=== PATIENT | female | born 1995 | race African-American/Black ===

== ENCOUNTER 2021-08-24 00:50 | Observation (INO) | payer OTHER, SELFPAY ==
--- NOTE | 2021-08-24 00:50 | OBADM ---
This patient, Valery Quiroz Hyster, admitted to the OB room [facility] for observation. Patient/family oriented to hospital policies and general routines including ID bracelet, bed and alarms, visiting hours, pain management, procedures, bathroom and other care routines, personal items, smoking policy, room service/diet, and visiting hours. Patient/Family are encouraged to report perceived risks to care and to ask questions if they do not understand what they are told or what they should do.
[2021-08-24 01:00] VITALS: BMI 35.4
[2021-08-24 01:18] VITALS: BP 122/65; PULSE 100
[2021-08-24 02:06] LABS: Hematocrit 31.4 % (37.0-47.0); Hemoglobin 10.5 g/dL (12.0-15.0); Mean Corpuscular HGB Conc 33.4 g/dl (32-36); Mean Corpuscular Hemoglobin 30.6 pg (26-34); Mean Corpuscular Volume 91.5 fl (80-100); Mean Platelet Volume 9.8 fl (7.4-10.4); Platelet Count Result 226 k/mm3 (150-375); Red Blood Count 3.43 M/mm3 (4.2-5.4); Red Cell Distribution Width 13.5 % (11.5-14.5); White Blood Count 8.1 K/mm3 (4.5-10.0)
[2021-08-24 08:03] VITALS: BP 119/57; PULSE 99
[2021-08-24 08:14] LABS: Basophils Percent Auto 0.5 % (0.2-1.2); Eosinophils Absolute Auto 0.2 K/mm3 (0-0.3); Eosinophils Percent Auto 2.1 % (0-4.4); Hematocrit 30.8 % (37.0-47.0); Immature Granulocyte Absolute 0.06 K/mm3 (0.00-0.031); Immature Granulocyte Percent A 0.8 % (0-0.5); Lymphocytes Absolute Auto 2.31 K/mm3 (0.9-3.2); Lymphocytes Percent Auto 29.6 % (18.3-44.2); Mean Corpuscular HGB Conc 32.5 g/dl (32-36); Mean Corpuscular Hemoglobin 29.6 pg (26-34); Mean Corpuscular Volume 91.1 fl (80-100); Mean Platelet Volume 9.9 fl (7.4-10.4); Monocytes Absolute Auto 0.6 K/mm3 (0.1-0.6); Monocytes Percent Auto 7.9 % (2.6-8.5); Neutrophils Absolute Auto 4.6 K/mm3 (1.3-6.7); Neutrophils Percent Auto 59.1 % (45.5-73.1); Platelet Count Result 222 k/mm3 (150-375); Red Blood Count 3.38 M/mm3 (4.2-5.4); Red Cell Distribution Width 13.7 % (11.5-14.5); White Blood Count 7.8 K/mm3 (4.5-10.0)
--- NOTE | 2021-08-24 08:38 | PM.IMHP ---
H&P: HPI History of Present Illness Date/Time: 08/24/21 08:38 Patient is a 25-year-old LMP 02/18/2021 currently 27 weeks 2 days gestation with BILLY 11/21/2021 (per patient). Patient presented to labor and delivery status post fall earlier this morning. 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 She states that she tripped and when she was unable to brace herself from the fall, she fell directly on her abdomen on the concrete steps. Afterwards, she denied significant abdominal pain, however, reported cramping while en route to the hospital. States that cramping has since completely resolved. She also reported minimal leg discomfort, which has also resolved. Patient denies any head or chest trauma. Patient denies any vaginal bleeding, leakage of fluid, or contractions. She reports good movement. Patient receives outside care with Dr. Najera at [facility] in [facility]. Patient states her last appointment was approximately 1 month ago and she has next scheduled appointment on 08/30/21. Patient states that current has been uncomplicated thus far. She does, however, have a history of a previous emergency section x1 for placental abruption at [facility] in 2019. Patient uncertain cause of placental abruption, but states it may have had something to do with a fibroid uterus. Chief Complaint: Intrauterine at 27w2d gestation s/p fall previous C/S x 1 history of placental abruption Review of Systems Review of Systems: All systems reviewed & are unremarkable except as noted in HPI and below Constitutional: Constitutional: Reports as per HPI and Reports no additional constitutional complaints Eyes: Eyes: Reports as per HPI and Reports no additional eye complaints ENT: Reports system reviewed and no additional complaints, except as documented and Reports as per HPI Cardiovascular: Cardiovascular: Reports as per HPI, Reports no additional cardiovascular complaints and Denies chest pain Respiratory: Respiratory: Reports as per HPI and Reports no additional respiratory complaints Gastrointestinal: Gastrointestinal: Reports as per HPI, Reports no additional gastrointestinal complaints and Denies abdominal pain Genitourinary: Genitourinary: Reports no additional female genitourinary complaints, Reports as per HPI and Denies abnormal vaginal bleeding Musculoskeletal: Musculoskeletal: Reports no additional musculoskeletal complaints and Reports as per HPI Integumentary/Breasts: Skin/Breast: Reports system reviewed and no additional complaints, except as docu and Reports as per HPI Neurologic: Reports system reviewed and no additional complaints, except as documented and Reports as per HPI Psychiatric: Psychiatric: Reports no additional psychiatric complaints and Reports as per HPI Endocrine: Endocrine: Reports no additional endocrine complaints and Reports as per HPI Hematologic/Lymphatic: Hematologic/Lymphatic: Reports no additional hematologic/lymphatic complaints and Reports as per HPI Allergic/Immunologic: Allergic/Immunologic: Reports no additional allergic/immunologic complaints and Reports as per HPI [facility] Surgical History Surgical History (Updated 08/24/21 @ 08:47 by Karma Lui MD) Previous section Social History Social History (Updated 08/24/21 @ 08:47 by Karma Lui MD) Smoking status: Never smoker Alcohol intake: never Substance use: never Meds Home Medications and Allergies Home Medications Medication Instructions Recorded Confirmed Type prenat.vits,inés,[id number] 1 tablet PO DAILY 08/24/21 08/24/21 History [ Vitamin] Vital Signs Vital Signs - 24 hr 08/24/21 01:18 08/24/21 08:03 Pulse Rate 100 99 Blood Pressure 122/65 119/57 L Exam Const: General: cooperative, healthy appearing, comfortable and no acute distress HENMT: Head: normal to insp
[2021-08-24 17:41] LABS: Basophils Percent Auto 0.4 % (0.2-1.2); Eosinophils Absolute Auto 0.2 K/mm3 (0-0.3); Eosinophils Percent Auto 2.2 % (0-4.4); Hematocrit 29.8 % (37.0-47.0); Hemoglobin 9.9 g/dL (12.0-15.0); Immature Granulocyte Absolute 0.07 K/mm3 (0.00-0.031); Immature Granulocyte Percent A 0.9 % (0-0.5); Lymphocytes Absolute Auto 2.27 K/mm3 (0.9-3.2); Lymphocytes Percent Auto 30.8 % (18.3-44.2); Mean Corpuscular HGB Conc 33.2 g/dl (32-36); Mean Corpuscular Hemoglobin 30.2 pg (26-34); Mean Corpuscular Volume 90.9 fl (80-100); Mean Platelet Volume 9.8 fl (7.4-10.4); Monocytes Absolute Auto 0.5 K/mm3 (0.1-0.6); Monocytes Percent Auto 7.3 % (2.6-8.5); Neutrophils Absolute Auto 4.3 K/mm3 (1.3-6.7); Neutrophils Percent Auto 58.4 % (45.5-73.1); Platelet Count Result 239 k/mm3 (150-375); Red Blood Count 3.28 M/mm3 (4.2-5.4); Red Cell Distribution Width 13.6 % (11.5-14.5); White Blood Count 7.4 K/mm3 (4.5-10.0)
--- NOTE | 2021-08-24 17:56 | P.PNOB_ITS ---
OB - PN: Subj Subjective Date/time seen: 08/24/21 17:56 Patient doing well. Denies any vaginal bleeding, leakage of fluid, or contractions. Reports good movement. OB - PN: Obj Data Labs CBC & Chem 7: 08/24/21 17:36 Labs: Laboratory Results - last 24 hr 08/24/21 08/24/21 08/24/21 01:57 01:57 08:02 WBC 8.1 7.8 RBC 3.43 L 3.38 L Hgb 10.5 L 10.0 L Hct 31.4 L 30.8 L MCV 91.5 91.1 MCH 30.6 29.6 MCHC 33.4 32.5 RDW 13.5 13.7 Plt Count 226 222 MPV 9.8 9.9 Immature Gran % (Auto) 0.8 H Neut % (Auto) 59.1 Lymph % (Auto) 29.6 [place] % (Auto) 7.9 Eos % (Auto) 2.1 Baso % (Auto) 0.5 Lymph # (Auto) 2.31 [place] # (Auto) 0.6 Eos # (Auto) 0.2 Baso # (Auto) 0.0 Abs Immat Gran (auto) 0.06 H Absolute Neuts (auto) 4.6 Absolute Nucleated RBC 0.0 Nucleated RBC % 0.0 Blood Type A Positive KB Hemoglobin Negative 08/24/21 17:36 WBC 7.4 RBC 3.28 L Hgb 9.9 L Hct 29.8 L MCV 90.9 MCH 30.2 MCHC 33.2 RDW 13.6 Plt Count 239 MPV 9.8 Immature Gran % (Auto) 0.9 H Neut % (Auto) 58.4 Lymph % (Auto) 30.8 [place] % (Auto) 7.3 Eos % (Auto) 2.2 Baso % (Auto) 0.4 Lymph # (Auto) 2.27 [place] # (Auto) 0.5 Eos # (Auto) 0.2 Baso # (Auto) 0.0 Abs Immat Gran (auto) 0.07 H Absolute Neuts (auto) 4.3 Absolute Nucleated RBC 0.0 Nucleated RBC % 0.0 Blood Type KB Hemoglobin OB - PN A/P Assessment and Plan (1) Fall (on) (from) other stairs and steps, initial encounter: Code(s): W10.8XXA - Fall (on) (from) other stairs and steps, initial encounter Status: Acute Assessment and Plan: patient doing well continue observation Hgb stable, due for one last draw this evening Time Spent With Patient Time: Total time spent is greater than 50% in coordination of care (as documented) at patient's floor/unit and/or counseling patient: Exam Back/Spine/Pelvis: Other: EFM 150/moderate [place]: no contractions
[2021-08-24 20:50] VITALS: BP 122/70; PULSE 91
[2021-08-24 21:00] VITALS: TEMP 36.3
[2021-08-24 23:57] LABS: Hematocrit 30.9 % (37.0-47.0); Hemoglobin 10.1 g/dL (12.0-15.0); Mean Corpuscular HGB Conc 32.7 g/dl (32-36); Mean Corpuscular Hemoglobin 29.6 pg (26-34); Mean Corpuscular Volume 90.6 fl (80-100); Mean Platelet Volume 9.8 fl (7.4-10.4); Platelet Count Result 230 k/mm3 (150-375); Red Blood Count 3.41 M/mm3 (4.2-5.4); Red Cell Distribution Width 13.5 % (11.5-14.5); White Blood Count 7.9 K/mm3 (4.5-10.0)
[2021-08-25 06:57] VITALS: BP 107/50; PULSE 96; TEMP 36.5
--- NOTE | 2021-08-25 08:48 | PC.NURSE ---
Dr. Lui informed of 2 small variable decels that I considered appropriate for her gestational age. Pt denies any abdominal pain, vaginal bleeding, or leakage of fluid. Pt has an appointment scheduled with her primary OB physician on Monday. OK to discharge to home.
--- NOTE | 2021-08-25 08:58 | PM.OBPNVD ---
OB - PN: Subj Subjective Date/time seen: 08/25/21 08:58 Per RN, patient doing well this AM. Denies any vaginal bleeding, leakage of fluid, or contractions. Reports good movement. OB - PN: Obj Data Labs CBC & Chem 7: 08/24/21 23:38 Labs: Laboratory Results - last 24 hr 08/24/21 08/24/21 17:36 23:38 WBC 7.4 7.9 RBC 3.28 L 3.41 L Hgb 9.9 L 10.1 L Hct 29.8 L 30.9 L MCV 90.9 90.6 MCH 30.2 29.6 MCHC 33.2 32.7 RDW 13.6 13.5 Plt Count 239 230 MPV 9.8 9.8 Immature Gran % (Auto) 0.9 H Neut % (Auto) 58.4 Lymph % (Auto) 30.8 [place] % (Auto) 7.3 Eos % (Auto) 2.2 Baso % (Auto) 0.4 Lymph # (Auto) 2.27 [place] # (Auto) 0.5 Eos # (Auto) 0.2 Baso # (Auto) 0.0 Abs Immat Gran (auto) 0.07 H Absolute Neuts (auto) 4.3 Absolute Nucleated RBC 0.0 Nucleated RBC % 0.0 OB - PN A/P Assessment and Plan (1) Fall (on) (from) other stairs and steps, initial encounter: Code(s): W10.8XXA - Fall (on) (from) other stairs and steps, initial encounter Status: Acute Assessment and Plan: discharge home in stable condition advised to contact primary OB office emergency precautions reviewed september f/u at next scheduled appt with primary OB on 08/30 Time Spent With Patient Time: Total time spent is greater than 50% in coordination of care (as documented) at patient's floor/unit and/or counseling patient:
--- NOTE | 2021-08-25 09:00 | P.DS_ITS ---
DS: Admitting Diagnosis Discharge Date 08/25/21 Admitting Diagnosis s/p fall DS: Summary Hospital Course Hospital Course: uncomplicated Time Spent with Patient Time attestation: Total time spent providing and/or coordinating discharge services: DS: Data Data Completed and Pending Labs on day of discharge: Labs from last 24 hours 08/24/21 08/24/21 23:38 17:36 WBC 7.9 7.4 RBC 3.41 L 3.28 L Hgb 10.1 L 9.9 L Hct 30.9 L 29.8 L MCV 90.6 90.9 MCH 29.6 30.2 MCHC 32.7 33.2 RDW 13.5 13.6 Plt Count 230 239 MPV 9.8 9.8 Immature Gran % (Auto) 0.9 H Neut % (Auto) 58.4 Lymph % (Auto) 30.8 [place] % (Auto) 7.3 Eos % (Auto) 2.2 Baso % (Auto) 0.4 Lymph # (Auto) 2.27 [place] # (Auto) 0.5 Eos # (Auto) 0.2 Baso # (Auto) 0.0 Abs Immat Gran (auto) 0.07 H Absolute Neuts (auto) 4.3 Absolute Nucleated RBC 0.0 Nucleated RBC % 0.0 Discharge Plan Discharge Attending physician on discharge: Karma Lui Discharging Clinician: Karma Lui Patient Disposition: Home, Self-Care Activity: as tolerated Diet: regular Discharge Instructions: OB ANTEPARTUM DISCHARGE INSTRUCTIONS This information is given to help you properly care for yourself at home after your discharge from the hospital. Follow these instructions until your doctor tells you otherwise. DIET: Eat Three Well Balanced Meals per Day Drink at Least Eight 8-Ounce Glasses of Caffeine-Free Beverages Daily Additional Diet Instructions: ACTIVITY: As Tolerated Additional Activity Instructions: RETURN TO LABOR AND DELIVERY IF YOU HAVE: Any Change In Baby's Normal Movement Pattern Any Leakage of Fluid More than 6 Contractions in an Hour Vaginal Bleeding Additional Reasons to Return to Labor and Delivery: Contractions may feel like abdominal pain, tightening, cramping, pressure, back ache, or thigh ache. FOLLOW-UP CARE: Keep Next Scheduled Appointment To see in/on Valuables released to patient or family? N/A Medications from home returned to patient? N/A I Acknowledge Receipt of and Understand the Above Instructions IF YOU HAVE ANY QUESTIONS REGARDING THESE INSTRUCTIONS, PLEASE CALL [phone]. IF PROBLEMS ARISE, CALL YOUR PROVIDER. IF EMERGENCY CARE IS NEEDED, [facility]S EMERGENCY ROOM IS AVAILABLE 24 HOURS A DAY. Stand Alone Forms: General Discharge Information, Work/School Release IP Follow-up/Referrals: Karma Lui MD [Physician] - Discharge Medications: Continued prenat.vits,inés,[id number] Tablet 1 tablet PO DAILY RF: 0 Date of admission: 08/24/21 00:50 Primary Care Provider: PHYSICIAN,PSYCHOTHERAPIST Admitting Provider: Karma Lui Attending physician on admission: Karma Lui Condition: Stable
== END 2021-08-25 09:00 | disposition home or self-care (01) ==
PROVIDERS: Admitting Provider Student in an Organized Health Care Education/Training Program; Visit Provider Student in an Organized Health Care Education/Training Program
DX: O26.892 Other specified pregnancy related conditions, second trimester (principal); R10.9 Unspecified abdominal pain; W10.8XXA Fall (on) (from) other stairs and steps, initial encounter; Z3A.27 27 weeks gestation of pregnancy
CPT/HCPCS: 36415; 85025; 85027; 85460; 86900; 86901; G0378; G0379

== ENCOUNTER 2022-10-25 00:24 | Emergency (ER) | payer OTHER, SELFPAY ==
[2022-10-25] VITALS (7 sets, daily range): BP systolic 123–145; BP diastolic 66–96; PULSE 78–100; RESP 14–16; TEMP 36.4–36.6; O2SAT 99–100
--- NOTE | ~2022-10-25 | US_ITS ---
EXAMINATION: US OB <=14 wk fetus w TV DATE: 10/25/2022 02:47 INDICATION: Spotting. TECHNIQUE: Real-time transabdominal and transvaginal pelvic ultrasound was performed. COMPARISON: None. FINDINGS: TRANSABDOMINAL ULTRASOUND: The uterus measures 7.8 x 4.5 x 5.6 cm. TRANSVAGINAL ULTRASOUND: There is an intrauterine gestational sac. A yolk sac is identified. The fet al crown rump length measures 4 mm, which correlates with an estimated gestational age of 6 weeks and 1 day(s) (+/-) 4 day(s). heart motion is identified measuring 110 beats per minute (bpm) by M- mode Doppler. The right ovary measures 2.5 x 2.3 x 1.9 cm. The left ovary measures 3.0 x 2.2 x 2.3 cm . There is no free fluid in the pelvis. IMPRESSION: 1. Single living intrauterine gestation with estimated date of delivery of 06/19/2023. Reviewed, dictated and finalized at location A. IMPRESSION: 1. Single living intrauterine gestation with estimated date of delivery of 06/19.
[2022-10-25 00:58] LABS: Appearance Urine Clear (Clear); Bacteria Urine None Seen /hpf; Bilirubin Urine Negative (Negative); Blood Urine Negative (Negative); Color Urine Yellow (Yellow); Glucose Urine UA Negative (Negative); Ketones Urine 1+ mg/dL (Negative); Leukocyte Esterase Ur Trace LEU/UL (Negative); Nitrate Urine Negative (Negative); Non Pathogenic Casts 0-2; Protein Urine Negative (Negative); RBC Urine 0-2 /hpf (0-2); Specific Grav Ur 1.012 (1.001-1.035); Squamous Epithelial Cell Urine Occasional /hpf (Few); pH Urine 6.5 (5.0-9.0)
[2022-10-25 01:00] LABS: Add Urine Microscopic? YES
[2022-10-25 02:16] LABS: Basophils Percent Auto 0.5 % (0.2-1.2); Eosinophils Absolute Auto 0.2 K/mm3 (0-0.3); Eosinophils Percent Auto 1.9 % (0-4.4); Hematocrit 35.9 % (37.0-47.0); Hemoglobin 11.4 g/dL (12.0-15.0); Immature Granulocyte Absolute 0.02 K/mm3 (0.00-0.031); Immature Granulocyte Percent A 0.2 % (0-0.5); Lymphocytes Absolute Auto 3.59 K/mm3 (0.9-3.2); Lymphocytes Percent Auto 44.7 % (18.3-44.2); Mean Corpuscular HGB Conc 31.8 g/dl (32-36); Mean Corpuscular Hemoglobin 27.2 pg (26-34); Mean Corpuscular Volume 85.7 fl (80-100); Mean Platelet Volume 9.7 fl (7.4-10.4); Monocytes Absolute Auto 0.4 K/mm3 (0.1-0.6); Monocytes Percent Auto 5.1 % (2.6-8.5); Neutrophils Absolute Auto 3.8 K/mm3 (1.3-6.7); Neutrophils Percent Auto 47.6 % (45.5-73.1); Platelet Count Result 214 k/mm3 (150-375); Red Blood Count 4.19 M/mm3 (4.2-5.4); Red Cell Distribution Width 14.5 % (11.5-14.5)
--- NOTE | 2022-10-25 04:09 | ED.GENADULT ---
HPI - General Adult General Chief complaint: Vaginal Bleeding Stated complaint: preg with spotting Time Seen by Provider: 10/25/22 01:43 History of Present Illness HPI narrative: Patient a 27-year-old female who presents the emergency department with chief complaint of positive test and abdominal cramping and spotting. Patient reports that she noticed that she was having some abdominal cramping and had some spotting and noticed that she was late on her. The patient did a outpatient test that was positive. The patient reports that she presented to the emergency department to evaluate. The patient denies nausea vomiting or diarrhea the patient reports that she is only had minimal spotting. The patient reports she did not require RhoGAM in her previous pregnancies Related Data Home Medications Medication Instructions Recorded Confirmed prenat.vits,inés,toc-[id number] 1 tablet PO DAILY 08/24/21 08/24/21 Allergies Allergy/AdvReac Type Severity Reaction Status Date / Time No Known Allergies Allergy Verified 10/25/22 00:29 Review of Systems Review of Systems: A 10 system review of systems was completed on the patient and is negative except for what is stated in the HPI. Nursing and ancillary documentation was reviewed. [facility] Surgical History Surgical History Previous section Social History Social History Smoking status: Never smoker Alcohol intake: never Substance use: never Exam Narrative: GENERAL: Well-appearing, well-nourished, and in no acute distress. HEAD: Normocephalic, atraumatic. EYES: PERRLA and EOMI. ENT: Nares clear, no rhinorrhea or epistaxis. Mucous membranes moist. NECK: Supple. CHEST: Clear to auscultation. No respiratory distress. HEART: Regular rate and rhythm. No murmur heard. Normal peripheral pulses. ABDOMEN: Soft, nontender, nondistended, normal active bowel sounds. EXTREMITIES: Normal range of motion. No edema. SKIN: Warm, dry, no rash. NEURO: No focal deficits. Alert and oriented x3. PSYCH: Normal mood and affect. Course Vital Signs Vital signs: Vital Signs Temperature 36.5 C 10/25/22 00:27 Pulse Rate 94 10/25/22 00:27 Respiratory Rate 16 10/25/22 00:27 Blood Pressure 145/78 H 10/25/22 00:27 Pulse Oximetry 100 10/25/22 00:27 Oxygen Delivery Room Air 10/25/22 00:27 Temperature 36.6 C 10/25/22 01:35 Pulse Rate 78 10/25/22 05:16 Respiratory Rate 14 10/25/22 05:16 Blood Pressure 128/66 10/25/22 05:16 Pulse Oximetry 100 10/25/22 05:16 Oxygen Delivery Room Air 10/25/22 00:27 Medical Decision Making MDM Narrative Medical decision making narrative: Differential diagnosis includes ectopic, UTI, threatened miscarriage Laboratory studies were obtained on [place] [id number] Patient is a positive for her blood type Electrolytes are within normal limits CBC showed a white count of 8.0 and hemoglobin of 11.4. Urinalysis showed trace leukocyte esterase and 6-10 white blood cells in the urine and occasional squamous cells. Urine culture has been sent as the patient has initiative nitrite and no bacteria Ultrasound was obtained which did show intrauterine with cardiac activity Vital Signs Vital Signs: Vital Signs Temperature 36.5 C 10/25/22 00:27 Pulse Rate 94 10/25/22 00:27 Respiratory Rate 16 10/25/22 00:27 Blood Pressure 145/78 H 10/25/22 00:27 Pulse Oximetry 100 10/25/22 00:27 Oxygen Delivery Room Air 10/25/22 00:27 Temperature 36.6 C 10/25/22 01:35 Pulse Rate 78 10/25/22 05:16 Respiratory Rate 14 10/25/22 05:16 Blood Pressure 128/66 10/25/22 05:16 Pulse Oximetry 100 10/25/22 05:16 Oxygen Delivery Room Air 10/25/22 00:27 Lab Data 10/25/22 02:10
== END 2022-10-25 06:03 | disposition home or self-care (01) ==
PROVIDERS: Emergency Provider Emergency Medicine
DX: O20.0 Threatened abortion (principal); Z3A.01 Less than 8 weeks gestation of pregnancy
CPT/HCPCS: 36415; 76801; 76817; 81001; 81025; 84702; 85025; 85461; 86850; 86900; 86901; 87086; 87088; 99284

== ENCOUNTER 2024-04-22 16:58 | Emergency (ER) | payer SELFPAY ==
[2024-04-22 17:05] VITALS: BP 136/68; PULSE 95; RESP 18; TEMP 36.6; O2SAT 100
--- NOTE | 2024-04-22 17:53 | PC.NURSE ---
Pt declined to be seen due to wait time, pt was seen exiting the ED in no distress, steady gait.
== END 2024-04-22 18:00 | disposition left against medical advice (07) ==
LOC: ANHED 18:02
DX: R22.0 Localized swelling, mass and lump, head (principal)
CPT/HCPCS: 99199